=== PATIENT | male | born 1980 ===

== ENCOUNTER 2021-11-09 15:59 | Emergency (ER) | payer SELFPAY ==
[~2021-11-09 15:59] MED LIST: TETANUS,DIPH,PERTUSS(ACELL) VACCINE 0.5 ML SYRINGE IM ONE
--- NOTE | 2021-11-09 16:02 | Event Note ---
ED Screening Note ED Screening Note: Mexican interpretation by Charisse, area secretary Patient presents emergency room stating that he was cut by a glass jar 9 days ago He states it was a jar of sugar He is unsure of his last tetanus immunization He states he seen some liquid drainage He denies any history of diabetes or any medical problems No allergies to medications This initial assessment/diagnostic orders/clinical plan/treatment(s) is/are subject to change based on patients health status, clinical progression and re- assessment by fellow clinical providers in the ED. Further treatment and workup at subsequent clinical providers discretion. Patient/guardian urged not to elope from the ED as their condition may be serious if not clinically assessed and managed. Initial orders include: XR and tdap
--- NOTE | 2021-11-09 17:09 | XRay Report ---
LEFT FOOT 3 VIEW(S) INDICATION / CLINICAL INFORMATION: cut left big toe with glass 9 days ago COMPARISON: None available. FINDINGS: BONES / JOINT(S): No acute fracture or subluxation. No significant arthritis. SOFT TISSUES: No significant abnormality. No radiopaque foreign body. ADDITIONAL FINDINGS: None. Signer Name: Raheel Evangelista MD Signed: 11/09/2021 5:04 PM Workstation Name: [id number]
--- NOTE | 2021-11-09 18:30 | Emergency Department Report ---
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 Mode of arrival: Ambulatory Limitations: No Limitations - History of Present Illness Initial comments: Russian interpretation by paul Mcqueenary Patient is a 40 yo male who presents emergency room stating that he was cut by a glass jar 9 days ago He states it was a jar of sugar He is unsure of his last tetanus immunization He states he seen some liquid drainage he denies any fever, chills, vomiting, numbness, weakness He denies any history of diabetes or any medical problems No allergies to medications - Related Data Previous Rx's Medication Instructions Recorded Last Taken Type Mupirocin [Bactroban 2% OINT] 1 applic TP TID #1 tube 11/09/21 Unknown Rx Naproxen 375 mg PO BID PRN #14 tab 11/09/21 Unknown Rx Sulfamethoxazole/Trimethoprim 1 each PO BID #14 tab 11/09/21 Unknown Rx [Bactrim DS TAB] Allergies Allergy/AdvReac Type Severity Reaction Status Date / Time No Known Allergies Allergy Verified 11/09/21 18:31 ED Review of Systems ROS: Stated complaint: INFECTED WOUND OF FOOT Other details as noted in HPI Comment: All other systems reviewed and negative ED Past Medical Hx - Medications Home Medications: Home Medications Medication Instructions Recorded Confirmed Last Taken Type Mupirocin [Bactroban 2% OINT] 1 applic TP TID #1 tube 11/09/21 Unknown Rx Naproxen 375 mg PO BID PRN #14 tab 11/09/21 Unknown Rx Sulfamethoxazole/Trimethoprim 1 each PO BID #14 tab 11/09/21 Unknown Rx [Bactrim DS TAB] ED Physical Exam - General Limitations: Language Barrier General appearance: alert, in no apparent distress - Head Head exam: Present: atraumatic, normocephalic - Eye Eye exam: Present: normal appearance - ENT ENT exam: Present: mucous membranes moist - Extremities Exam Extremities exam: Present: other (ttp to the left toe MTP region, there is a 2 cm laceration present, mild edema, mild erythema, no necrosis, no increased warmth, no drainage, no fluctuance, FROM, neurovascularly intact) - Neurological Exam Neurological exam: Present: alert, oriented X3 - Psychiatric Psychiatric exam: Present: normal affect, normal mood - Skin Skin exam: Present: warm, dry ED Course Vital Signs 11/09/21 19:00 Temperature 98.3 F Pulse Rate 75 Respiratory 18 Rate Blood Pressure 121/75 [Right] O2 Sat by Pulse 100 Oximetry ED Medical Decision Making - Radiology Data Radiology results: report reviewed Ordering Physician: VIC JUNIOR Date of Service: 11/09/21 Procedure(s): XR foot 3+V LT Accession Number(s): [id number] cc: VIC JUNIOR Fluoro Time In Minutes: LEFT FOOT 3 VIEW(S) INDICATION / CLINICAL INFORMATION: cut left big toe with glass 9 days ago COMPARISON: None available. FINDINGS: BONES / JOINT(S): No acute fracture or subluxation. No significant arthritis. SOFT TISSUES: No significant abnormality. No radiopaque foreign body. ADDITIONAL FINDINGS: None. Signer Name: Raheel Evangelista MD Signed: 11/09/2021 5:04 PM Workstation Name: [id number] Transcribed By: SB Dictated By: RAHEEL EVANGELISTA MD Electronically Authenticated By: RAHEEL EVANGELISTA MD Signed Date/Time: 11/09/211703 DD/ 02 TD/TT: - Medical Decision Making Russian interpretation by Charisse, front office secretary Patient is a 40 yo male who presents emergency room stating that he was cut by a glass jar 9 days ago He states it was a jar of sugar He is unsure of his last tetanus immunization He states he seen some liquid drainage he denies any fever, chills, vomiting, numbness, weakness He denies any history of diabetes or any medical problems No allergies to medications vitals are normal. on exam: ttp to the left toe MTP region, there is a 2 cm laceration present, mild edema, mild erythema, no necrosis, no increased warmth, no drainage, no fluctuance, FROM, neurovascularly intact. XR left foot: BONES / JOINT(S): No acute fracture or subluxation. No significant arthritis. SOFT TISSUES: No significant abnormality. No radiopaque foreign body. ADDITIONAL FINDINGS: None. Examination shows very mild cellulitis, no abscess, no visualized foreign bodies it does appear patient has a contusion present to the toe there is a laceration present but it has been 9 days since the laceration occurred. Laceration will have to heal by secondary intention. Wound care performed by measurement supervisor. Patient given Tdap. Advised patient Please use medication as prescribed. Please follow-up with a orthopedic or marketing programs specialist. Return to emergency room for any new or worsening symptoms. Critical care attestation.: If time is entered above; I have spent that time in minutes in the direct care of this critically ill patient, excluding procedure time. ED Disposition Clinical Impression: Foot laceration Qualifiers: Encounter type: initial encounter Laterality: left Qualified Code(s): S91.312A - Laceration without foreign body, left foot, initial encounter Foot pain Qualifiers: Laterality: left Qualified Code(s): M79.672 - Pain in left foot Cellulitis Qualifiers: Site of cellulitis: extremity Site of cellulitis of extremity: lower extremity Laterality: left Qualified Code(s): L03.116 - Cellulitis of left lower limb Disposition: 01 HOME / SELF CARE / HOMELESS Is pt being admited?: No Does the pt Need Aspirin: No Condition: Stable Instructions: Cellulitis, Adult, Laceration Care, Adult, [id number] Additional Instructions: Please use medication as prescribed. Please follow-up with a orthopedic or marketing programs specialist. Return to emergency room for any new or worsening symptoms. Prescriptions: Sulfamethoxazole/Trimethoprim [Bactrim DS TAB] 1 each PO BID #14 tab Mupirocin [Bactroban 2% OINT] 1 applic TP TID #1 tube Naproxen 375 mg PO BID PRN #14 tab PRN Reason: pain Referrals: EMELY BARRETT MD [Staff Physician] - 3-5 Days ANTONIO VANEGAS DPM [Staff Physician] - 3-5 Days Time of Disposition: 18:27 Print Language: TUNISIAN
[2021-11-09] MEDS ORDERED: TETANUS,DIPH,PERTUSS(ACELL) VACCINE 0.5 ML SYRINGE IM ONE (18:41)
[2021-11-09 19:01] VITALS: BP 121/75
== END 2021-11-09 19:00 | disposition home or self-care (01) ==
LOC: EDBD → ED 15:59
DX: S91.312A Laceration without foreign body, left foot, initial encounter (principal); L03.116 Cellulitis of left lower limb; M79.672 Pain in left foot; W25.XXXA Contact with sharp glass, initial encounter; Y93.89 Activity, other specified; Y92.89 Other specified places as the place of occurrence of the external cause; Y99.8 Other external cause status
CPT/HCPCS: 90471; 90715; 99283